=== PATIENT | male | born 1980 | race Caucasian/White ===

== ENCOUNTER 2018-03-04 04:22 | Emergency (ER) | payer MEDICARE ==
[~2018-03-04] VITALS: Ht 177.8 cm; Wt 99.8 kg
[2018-03-04 05:05] VITALS: BP 151/85
[2018-03-04] MEDS ORDERED: IV NORMAL SALINE 1000ML BAG 1,000 ML IV ONE (05:15)
[2018-03-04] MEDS ORDERED: LIDOCAINE 1% Multi-Dose 20 ML VIAL. INJ ONE (05:15)
--- NOTE | 2018-03-04 05:26 | PHYS DOC ---
Adult General Chief Complaint Chief Complaint: NAUSEA/VOMITING/DIARRHA HPI HPI Patient is a 37 year old male who presents with multiple complaints. First, the patient complains of an abscess in the right axilla. He states it has come up over the last 2 days. He does have a prior history of abscesses that have required drainage but never in the armpit. No fever or chills. His second complaint is that he is requesting treatment for Clostridium difficile infection. The patient has community-acquired C. difficile. He had finished a 2 week course of vancomycin. He had ongoing symptoms so he was evaluated at a hospital in [facility] last week when the patient states he continued to test positive for this infection. This does not mean he has ongoing infection but the patient does continue to have some diarrhea and generalized abdominal cramping. He was prescribed vancomycin but he simply has no money to afford the treatment. No fever or chills. No significant abdominal pain. Lastly, the patient complains of alcohol withdrawal. He drinks heavily every day. He does have a prior history of withdrawal seizures and has required intubation in the past with ICU admission. His last drink was earlier this evening. He does complain of mild tremors right now. (LALI CHAUDHARI DO) Review of Systems Review of Systems Constitutional: Denies fever or chills Eyes: Denies change in visual acuity HENT: Denies nasal congestion Respiratory: Denies cough or shortness of breath Cardiovascular: No additional information not addressed in HPI GI: + mild abdominal cramping and diarrhea : Denies dysuria Musculoskeletal: Denies back pain Integument: Denies rash or skin lesions Neurologic: Denies headache All other systems were reviewed and found to be within normal limits, except as documented in this note. (LALI CHAUDHARI DO) Current Medications Current Medications Current Medications Medications (Trade) Dose Ordered Sig/Missy Start Time Stop Time Status Last Admin Dose Admin Lidocaine HCl (Lidocaine 1% 20ml Vial) 20 ml 1X ONCE 03/04/18 05:15 03/04/18 05:17 DC 03/04/18 05:33 20 ML Lorazepam (Ativan) 1 mg 1X ONCE 03/04/18 06:15 03/04/18 06:16 DC 03/04/18 06:49 1 MG Morphine Sulfate (Morphine Sulfate) 4 mg 1X ONCE 03/04/18 06:15 03/04/18 06:16 DC 1/24/19 06:50 4 MG Sodium Chloride 1,000 ml @ 1,000 mls/hr 1X ONCE 03/04/18 05:15 03/04/18 06:14 DC 03/04/18 05:32 1,000 MLS/HR (SPENSER FORTUNE MD) Allergies Allergies Allergies Coded Allergies Type Severity Reaction Last Updated Verified aripiprazole Allergy Intermediate DYSTONIA 03/04/18 Yes haloperidol Allergy Intermediate DYSTONIA 03/04/18 Yes risperidone Allergy Intermediate DYSTONIA 03/04/18 Yes acetaminophen Allergy Unknown HAS HEP C/B 03/04/18 Yes (SPENSER FORTUNE MD) Physical Exam Physical Exam Constitutional: Well developed, well nourished, no acute distress, non-toxic appearance HENT: Normocephalic, atraumatic, bilateral external ears normal, oropharynx moist Eyes: PERRLA, EOMI, conjunctiva normal Neck: Normal range of motion, no tenderness Cardiovascular: mildly tachy rate with regular rhythm, no murmur Lungs & Thorax: Bilateral breath sounds clear to auscultation Abdomen: Bowel sounds normal, soft, no tenderness Skin: Warm, dry, no erythema, no rash Extremities: no edema, + abscess in right axilla, area of fluctuance approx 3 cm Neurologic: Alert and oriented X 3, normal motor function, + mild tremors Psychologic: Affect normal (LALI CHAUDHARI DO) Current Patient Data Vital Signs Vital Signs Date Time Temp Pulse Resp B/P (MAP) Pulse Ox O2 Delivery O2 Flow Rate FiO2 03/04/18 06:50 22 100 Room Air 03/04/18 05:05 97.9 111 151/85 (107) 97.9 (SPENSER FORTUNE MD) Lab Values Laboratory Tests Test 03/04/18 05:47 White Blood Count 9.1 x10^3/uL (4.0-11.0) Red Blood Count 4.45 x10^6/uL (4.30-5.70) Hemoglobin 13.5 g/dL (13.0-17.5) Hematocrit 39.7 % (39.0-53.0) Mean Corpuscular Volume 89 fL (79-100) Mean Corpuscular Hemoglobin 30 pg (25-35) Mean Corpuscular Hemoglobin Concent 34 g/dL (31-37) Red Cell Distribution Width 17.2 % (11.5-14.5) H Platelet Count 306 x10^3/uL (140-400) Neutrophils (%) (Auto) 74 % (31-73) H Lymphocytes (%) (Auto) 11 % (24-48) L Monocytes (%) (Auto) 12 % (0-9) H Eosinophils (%) (Auto) 2 % (0-3) Basophils (%) (Auto) 1 % (0-3) Neutrophils # (Auto) 6.7 x10^3uL (1.8-7.7) Lymphocytes # (Auto) 1.0 x10^3/uL (1.0-4.8) Monocytes # (Auto) 1.1 x10^3/uL (0.0-1.1) Eosinophils # (Auto) 0.2 x10^3/uL (0.0-0.7) Basophils # (Auto) 0.1 x10^3/uL (0.0-0.2) Sodium Level 137 mmol/L (136-145) Potassium Level 3.6 mmol/L (3.5-5.1) Chloride Level 99 mmol/L (98-107) Carbon Dioxide Level 26 mmol/L (21-32) Anion Gap 12 (6-14) Blood Urea Nitrogen 16 mg/dL (8-26) Creatinine 1.2 mg/dL (0.7-1.3) Estimated GFR (Cockcroft-Gault) 67.8 Glucose Level 105 mg/dL (70-99) H Calcium Level 8.6 mg/dL (8.5-10.1) Ethyl Alcohol Level < 10 mg/dL (0-10) Laboratory Tests 03/04/18 05:47 Laboratory Tests 03/04/18 05:47 (SPENSER FORTUNE MD) EKG EKG [] (LALI CHAUDHARI DO) Radiology/Procedures Radiology/Procedures [] (LALI CHAUDHARI DO) Course & Med Decision Making Course & Med Decision Making Pertinent Labs and Imaging studies reviewed. (See chart for details) 05:15: Patient is seen and examined. Mild tremors. Mild tachy. Will treat ETOH w/d with ativan. Plan is to I&D abscess. Regarding c-diff, patient has no fever, no significant abd findings on exam, and is non-toxic. Does not meet criteria for admission/treatment based on exam but is not likely he will be able to afford outpatient therapy. Not a candidate for 2nd line therapy (Flagyl ) due to alcoholism and risk of disulfiram like rxn with this med. Patient states he gets paid next Thursday and may be able to afford vanc Rx at that time. Rx was written by LINSEY Gillespie. Procedure: I&D right axilla abscess. Area was cleansed with iodine. 5 total Alonzo of 1% lidocaine was used to provide local anesthesia. Following this, and alert blade was used to make a puncture at the head of the abscess. There was immediate return of copious amounts of purulent material. The abscess was then irrigated copiously with normal saline. Following this, iodoform 1/2 inch packing was placed. This procedure was repeated on a second abscess which was just inferior to the original. Patient tolerated well. Medications for pain ordered. KRISTOPHER to Dr. Fortune. Patient can be discharged home pending improvement in ETOH w/d symptoms. He has Rx for vancomycin already but does not have resources to fill. Advised to return to ER in two days for recheck of I&D site in right axilla. (LALI CHAUDHARI DO) Course & Med Decision Making Care of patient assumed at shift change with instructions to make a disposition pending response to treatment and lab work. Pt is feeling much better. He would like to go home and will call a ride. Labs reassuring. On exam he has no clinical signs of etoh withdrawal at this time. (SPENSER FORTUNE MD) Dragon Disclaimer Dragon Disclaimer This electronic medical record was generated, in whole or in part, using a voice recognition dictation system. (LALI CHAUDHARI DO) Departure Departure Referrals: ORLANDO ERNST MD (PCP) LALI CHAUDHARI DO Mar 04, 2018 05:26 SPENSER FORTUNE MD Mar 04, 2018 07:31
[2018-03-04 06:11] LABS: BASO # 0.1 x10^3/uL (0.0-0.2); BASO % 1 % (0-3); EOS # 0.2 x10^3/uL (0.0-0.7); EOS % 2 % (0-3); HEMATOCRIT 39.7 % (39.0-53.0); HEMOGLOBIN 13.5 g/dL (13.0-17.5); LYMPH % 11 % (24-48); MEAN CORPUSCULAR HEMOGLOBIN 30 pg (25-35); MEAN CORPUSCULAR HGB CONC 34 g/dL (31-37); MEAN CORPUSCULAR VOLUME 89 fL (79-100); MONO # 1.1 x10^3/uL (0.0-1.1); MONO % 12 % (0-9); NEUT # 6.7 x10^3uL (1.8-7.7); NEUT % 74 % (31-73); PLATELET COUNT 306 x10^3/uL (140-400); RED BLOOD COUNT 4.45 x10^6/uL (4.30-5.70); RED CELL DISTRIBUTION WIDTH 17.2 % (11.5-14.5); WHITE BLOOD COUNT 9.1 x10^3/uL (4.0-11.0)
[2018-03-04] MEDS ORDERED: MORPHINE SULFATE 4 MG/ML VIAL. IV ONE (06:15)
[2018-03-04 06:16] LABS: CALCIUM 8.6 mg/dL (8.5-10.1); CREATININE 1.2 mg/dL (0.7-1.3); GFR 67.8; POTASSIUM 3.6 mmol/L (3.5-5.1)
== END 2018-03-04 07:43 | disposition home or self-care (01) ==
LOC: ER 04:22
DX: L02.411 Cutaneous abscess of right axilla (principal); R19.7 Diarrhea, unspecified; R25.1 Tremor, unspecified; R10.84 Generalized abdominal pain; F10.239 Alcohol dependence with withdrawal, unspecified; Y90.0 Blood alcohol level of less than 20 mg/100 ml; Z88.6 Allergy status to analgesic agent; Z88.0 Allergy status to penicillin
CPT/HCPCS: 10060; 36415; 80048; 85025; 96361; 96374; 96375; 96376; 99283; G0480; J2060; J2270; J7030